=== PATIENT | male | born 1990 | race Caucasian/White ===

== ENCOUNTER → 2021-09-30 09:35 | Outpatient (BNVA) | payer OTHER, SELFPAY | PROVIDERS: Referring Provider Nurse Practitioner Family; Visit Provider Surgery | DX: Z20.822 Contact with and (suspected) exposure to COVID-19 (principal); K62.5 Hemorrhage of anus and rectum; K64.4 Residual hemorrhoidal skin tags | CPT/HCPCS: 87635 ==

== ENCOUNTER 2021-10-06 08:44 | Day surgery (SDC) | payer OTHER, SELFPAY ==
[2021-10-05 12:17] VITALS: BMI 31.6
[2021-10-06] VITALS (7 sets, daily range): BP systolic 108–129; BP diastolic 64–89; PULSE 75–86; RESP 16–20; TEMP 36.6–37; O2SAT 97–100
[2021-10-06] MEDS: sodium chloride 0.9% 1,000 ML 30 ML IV (09:07)
[2021-10-06] MEDS: acetaminophen 1,000 MG/100 ML PIGGYBACK 400 MG IV (09:08)
--- NOTE | 2021-10-06 10:50 | W.PM.OPSUD ---
Surgery/Procedure H&P Update DATE OF PROCEDURE: October 06, 2021 DATE H&P PERFORMED: 09/30/21 PREOP DIAGNOSIS: Bleeding hemorrhoid PRIMARY INDICATION FOR PROCEDURE: The same PLANNED PROCEDURE: Operation Date: 10/06/21 11:10 Proposed Procedures p Colonoscopy [id number]/k62.5/k64.4(Not Applicable) - Sandor Chiang MD s Exam Under Anesthesia(Not Applicable) - Sandor Chiang MD s Possible Hemorroidectomy(Not Applicable) - Sandor Chiang MD
[2021-10-06] MEDS: ciprofloxacin 400 MG/200 ML PREMIX 200 MG IV (11:10)
[2021-10-06] MEDS: metroNIDAZOLE IV 500 MG/100 ML PREMIX 100 MG IV (11:19)
--- NOTE | 2021-10-06 12:09 | P.OP_ITS ---
Operative Report Date of procedure: October 06, 2021 Pre-op diagnosis: Preop Diagnosis Bleeding hemorrhoid Post-op diagnosis: Normal-looking colon and presence of posterior anal hemorrhoid Procedure done: 1-Colonoscopy 2-Examination under anesthesia with hemorrhoidectomy Implants: Surgicel/Xeroform Specimens removed/disposition: Posterior anal hemorrhoid Surgeon: Sandor Chiang MD Front Maker Lockstitch: weld technician Shona Circulating nurse Ally Esquivel Anesthesia: MAC (sales & service associate Simone Frye) Estimated blood loss: 5 Procedure: Patient was identified in the holding area, was taken to the OR placed first in supine position,IV antibiotics were given with induction time-out was done verifying the patient's name, date of , and procedure, all were in a greement. IV propofol was infused by the anesthesia provider, patient was placed in left lateral position. Presence of posterior anal hemorrhoid Following that a digital rectal examination was done there was no evidence of masses the colonoscope was then introduced via the anus under direct visualization, all the way to the cecum, prep of the colon was appropriate, there were no polyps identified or masses or diverticular disease or strictures, the scope was then retrieved back ,time for withdrawal exceeded 6 minutes, gas was deflated on the way out. Retroflex was done at the end showing showed no evidence of internal hemorrhoids. As a side note patient's colon is tortuous and it took me some time to navigate all the way to reach the cecumParticularly towards the right side of the colon. Prep and drape of the perineum was done under the usual sterile technique All pressure points were padded, injecting Exparel around the site of excision of the posterior anal hemorrhoid. A lubricated self-retaining proctoscope was inserted,Started by introducing a wet sponge to prevent any residual colon prep from contaminating the site of the excision, and under direct visualization I was able to hold the posterior anal mass with hemostat, and using harmonic scalpel hand-held device I was able to excise the whole lesion and sent it for pathology, followed by 3-0 chromic catgut.Hemostasis was achieved, irrigation was done, sponge was retrieved. A piece of Surgicel /piece of Xeroform impregnated with lidocaine 2% jelly was placed in the anal canal, attached to 2-0 silk suture, to help retrieving it by the patient later on.ABDs were applied followed by surgical pants. Patient was repositioned to supine position, counts of instruments,needles and sponges were completed at the end of the procedure Patient was taken to the recovery area in stable condition I was present for the whole entire procedure Repeat colonoscopy in 10 years for screening purposes unless otherwise specified.
== END 2021-10-06 13:22 | disposition home or self-care (01) ==
PROVIDERS: Visit Provider Surgery
PROC: 0DJD8ZZ Inspection of Lower Intestinal Tract, Via Natural or Artificial Opening Endoscopic (ICD-10-PCS; CPT 45378; principal; 2021-10-06 11:10)
PROC: (CPT 45378; 2021-10-06 11:10)
PROC: (CPT 45378; 2021-10-06 11:10)
DX: K64.4 Residual hemorrhoidal skin tags (principal)
CPT/HCPCS: 45378; 46255; 88304; C9290; J0744; J2704; J3490; J7030; S0030